=== PATIENT | female | born 1960 | race Caucasian/White ===

== ENCOUNTER 2017-10-31 19:59 | Emergency (ER) | payer OTHER ==
[~2017-10-31] VITALS: Ht 162.6 cm; Wt 77.2 kg
[2017-10-31 20:14] VITALS: Ht 162.6 cm; Wt 77.2 kg
[2017-10-31 22:05] VITALS: BP 118/72
== END 2017-10-31 22:05 | disposition home or self-care (01) ==
LOC: ED 19:59
DX: J11.1 Influenza due to unidentified influenza virus with other respiratory manifestations (principal); J45.909 Unspecified asthma, uncomplicated; F32.9 Major depressive disorder, single episode, unspecified
CPT/HCPCS: J1100

== ENCOUNTER 2018-12-11 02:55 | Emergency (ER) | payer OTHER ==
[2018-12-11 03:01] VITALS: BP 105/85; Ht 154.9 cm
== END 2018-12-11 04:23 | disposition left against medical advice (07) ==
LOC: ED 02:55
DX: Z53.21 Procedure and treatment not carried out due to patient leaving prior to being seen by health care provider (principal)

== ENCOUNTER 2019-03-06 09:09 | Inpatient (IN) | payer OTHER ==
[~2019-03-06] VITALS: Ht 154.9 cm; Wt 83.5 kg
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
--- NOTE | 2019-03-06 09:40 | NUR ---
DR KEE AT BEDSIDE FOR MSE
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
--- NOTE | 2019-03-06 10:25 | NUR ---
LILLIAN MANAGER CRISIS AT BEDSIDE TO SPEAK WITH PT.
--- NOTE | 2019-03-06 10:53 | NUR ---
OFFICER MARCIO PLACED PT ON A 5150 HOLD. PT AT THIS TIME CALM AND COOPERATIVE PTS DAUGHTER AT BEDSIDE
--- NOTE | 2019-03-06 11:15 | NUR ---
PT INST TO PROVIDE CLEAN CATCH URINE. LAB BLOOD DRAW AT BEDSIDE
--- NOTE | 2019-03-06 11:20 | NUR ---
PT C/O BILATERAL HAND NECK AND BACK PAIN DUE TO "ARTHRITIS" DR KEE MADE AWRE PT REQUESTING PAIN MEDICATION
--- NOTE | 2019-03-06 11:31 | NUR ---
PT MEDICATED PER MD ORDERS SEE EMAR.
[2019-03-06 11:39] LABS: BASOPHIL % 0.3 % (0-2); PLATELET COUNT 266 x10^3mcL (130-400); RED CELL DISTRIBUTION WIDTH 14.5 % (11.5-14.5)
[2019-03-06 11:46] LABS: CARBON DIOXIDE 30.6 mmol/L (21-32); CHLORIDE SERUM 107 mmol/L (98-107); CREATININE SERUM 0.6 mg/dL (0.6-1.0); GFR1 > 60 mL/min; GLUCOSE SERUM 100 mg/dL (74-106); POTASSIUM SERUM 3.9 mmol/L (3.5-5.1); SODIUM SERUM 144 mmol/L (136-145)
[2019-03-06 11:59] LABS: ALBUMIN 3.7 g/dL (3.4-5.0); ALKALINE PHOSPHATASE 109 U/L (46-116); ALT/SGPT 35 U/L (14-59); AST/SGOT 17 U/L (15-37); BILIRUBIN TOTAL 0.6 mg/dL (0.20-1.00); T4(THYROXINE) 6.3 ug/dL (4.7-13.3); TOTAL PROTEIN, SERUM 7.2 g/dL (6.4-8.2)
--- NOTE | 2019-03-06 12:30 | NUR ---
PT WITH URGE TO SMOKE. OK PER DR KEE. DAUGHTER WILL MONITOR PT IN SMOKING AREA OUTSIDE OF ED.
--- NOTE | 2019-03-06 12:43 | NUR ---
PT BACK TO ROOM WITH NO INCIDENT. DAUGHTER AT BEDSIDE
[2019-03-06 13:01] LABS: AMPHETAMINE QUAL UR NONE DETECTED (See below)
--- NOTE | 2019-03-06 13:58 | NUR ---
PT RESTING COMFORTABLY TALKING WITH DAUGHTER WHO IS AT BEDSIDE. VSS WILL CONTINUE TO MONITOR
--- NOTE | 2019-03-06 15:04 | NUR ---
PT MOVED TO BED 4 FOR CLOSER MONITORING. PT IN NO DISTRESS SILVIO ASHRAF RESUMING CARE OF THIS PT.
--- NOTE | 2019-03-06 15:54 | NUR ---
PT IN ROOM IN DIRECT VIEW OF NURSES STATION WHEN PT STARTED SCREAMING AT HIM. PT CRYING AND AGITATED. PRIOR TO HUSBAN PT WAS CALM AND COOPERATIVE. ASKED TO LEAVE THE ROOM, HE WAS COOPERATIVE. TURNED OFF LIGHTS TO PT ROOM, PT NO LONGER CRYING BUT TEARY EYED. OFFERED WATER. HR=84 SP02=97% ON RA RR=16
--- NOTE | 2019-03-06 17:06 | NUR ---
SON NOW AT BEDSIDE. PT IS CALM AND COOPERATIVE. NO ACUTE DISTRESS NOTED AT THIS MOMENT. RESPS E/U, SKIN IS PINK, WARM AND DRY.
--- NOTE | 2019-03-06 18:27 | NUR ---
SPOKE TO PSYCH MD AND GAVE HIM REPORT. HE WILL BE CALLING IN 7 MINUTES TO INITIATE ASSESSMENT.
--- NOTE | 2019-03-06 18:58 | NUR ---
DR. DOMÍNGUEZ RECOMMEND IN-PATIENT PSYCHITRY PLACEMENT. DR BRYANT MADE AWARE.
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
--- NOTE | 2019-03-06 20:49 | NUR ---
MEDICATION GIVEN PER ORDER. NO S/S OF DISTRESS PT AMBULATING AROUND ROOM AND CLEANED AREA WITH STEADY GAIT. WILL CONTINUE TO MONITOR
--- NOTE | 2019-03-06 23:49 | NUR ---
PT LYING ON LEFT SD NO S/S OF DISTRESS. VITALS STABLE.
--- NOTE | 2019-03-07 02:59 | NUR ---
PT LYING COMFORTABLY ON LEFT SD NO S/S OF DISTRESS.
--- NOTE | 2019-03-07 06:24 | NUR ---
PT AMBULATED TO RESTROOM. NO S/S OF DISTRESS. SPEAKS IN CLEAR AND CONCISE SENTENCES.
--- NOTE | 2019-03-07 07:15 | NUR ---
RECEIVED REPORT FROM ANTONIO PATEL
--- NOTE | 2019-03-07 08:32 | NUR ---
Pt packet faxed to the following facilities: [facility]: [facility], pending D/Cs will review packet [facility]: [facility], pending D/Cs, will review packet [facility]: packet on file for review for any potential openings. Will continue to contact contracted facilities, will contact with any update
--- NOTE | 2019-03-07 09:37 | NUR ---
PT FINISHED EATING BREAKFAST. SLEEPING AT THIS TIME WITH VSS AND NO DISTRESS. BREATHING IS EVEN AND UNLABORED. WILL CONTINUE TO MONITOR
--- NOTE | 2019-03-07 11:12 | NUR ---
PT OOB TO GO OUTSIDE AND SMOKE WITH HER DAUGHTER. PRIMARY RN MADE AWARE.
--- NOTE | 2019-03-07 12:23 | NUR ---
PT SITTING HIGH FOWLERS EATING LUNCH. DENIES PAIN. COMPLETELY COOPERATIVE AND NO DISTRESS NOTED. WILL CONTINUE TO MONITOR
--- NOTE | 2019-03-07 13:20 | NUR ---
PT OUTSIDE TO SMOKE AT THIS TIME. NO DISTRESS AND VSS
--- NOTE | 2019-03-07 15:14 | NUR ---
PT CONNECTED TO CABLE PLACER FOR VSS AND WITHIN A FEW MIN PT RMOVED ALL CARDIAC EQUIPMENT AGAIN. TALKING ON CELL PHONE AND WALKING AROUND.
--- NOTE | 2019-03-07 15:32 | NUR ---
REPORT GIVEN TO LISA SHELL RN
--- NOTE | 2019-03-07 15:34 | NUR ---
[facility]. PT CLAIMS SHE TAKES MEDS FOR ARTHRITIS BUT CANNOT RECALL NAME
--- NOTE | 2019-03-07 15:50 | NUR ---
AWAITING ADMISSION ORDERS
--- NOTE | 2019-03-07 16:35 | NUR ---
[facility] BY TRANSPORTER. PT A/A/O X 4, CALM, COOPERATIVE AT THIS TIME, WEARS GLASSES (W/ PT); NO S/I OR HALLUCINATION OF ANY TYPE. AMBULATORY, NO GAIT OR BALANCE IMPAIRMENT NOTED WALKING FROM [facility] TO BED. DENIES CHEST PAIN OR DISCOMFORT AT THIS TIME. NO RESPIRATORY DISTRESS NOTED. NOTED BILATERAL UPPER EXTREMITY SELF-INFLICTED LINEAR SCRATCHES OF VARYING LENGTHS, ALL SUPERFICIAL; KEY CARRIER. C/O SHARP, INTERMITTENT RIGHT-SIDED PAIN TO HEAD, NECK, AND ARMS, 4/10, RELIEVED ONLY BY PAIN MEDICATION. PT DOES NOT HAVE ANY IV SITE AT THIS TIME. SITTER IS BY BEDSIDE. ORIENTED PT TO ROOM, BED CONTROLS, CALL LIGHT SYSTEM. SIDE RAILS UP X 2, BED IN LOW POSITION. WILL ENDORSE TO PASCALE GONZALEZ.
[2019-03-07 17:14] VITALS: BP 119/61
--- NOTE | 2019-03-07 18:12 | NUR ---
REMAINS IN STABLE CONDITION AT THIS TIME. PT. DENIES ANY SUICIDAL IDEATION AT THE PRESENT TIME. SITTER AT BEDSIDE. WILL CONTINUE TO MONITOR.
--- NOTE | 2019-03-07 19:50 | NUR ---
RECEIVED REPORT FROM DAY SHIFT RN. PT RESTING IN BED. AA&O X4. NO SOB ON ROOM AIR. NO C/O PAIN. NO DISTRESS NOTED. DENIES HAVING THOUGHTS OF HARMING SELF OR OTHERS. SAFETY MEASURES IN PLACE. SITTER AT BEDSIDE. BED IN LOWEST POSITION. SIDE RAILS UP X2. INSTRUCTED PT TO USE THE CALL LIGHT FOR ASSISTANCE. CALL LIGHT WITHIN REACH. DAUGHTER AT BEDSIDE.
[2019-03-07 20:54] VITALS: BP 118/72
[2019-03-07 23:08] LABS: microscopic required? NO
[2019-03-07 23:26] LABS: UA SPECIFIC GRAVITY <=1.005 (1.005-1.035); urine erythrocyte NEGATIVE (NEGATIVE)
--- NOTE | 2019-03-08 00:35 | NUR ---
TYLENOL GIVEN FOR HEADACHE.
--- NOTE | 2019-03-08 00:48 | NUR ---
AMBIEN GIVEN FOR INSOMNIA.
--- NOTE | 2019-03-08 01:35 | NUR ---
PT RESTING WITH EYES CLOSED. BREATHING EVEN AND UNLABORED. NO FACIAL GRIMACING. CALL LIGHT WITHIN REACH. SITTER AT BEDSIDE.
[2019-03-08 05:43] VITALS: BP 128/80
--- NOTE | 2019-03-08 06:01 | NUR ---
Karyn ASHRAFcharge attendant nurse made aware , there are no vacancy at any of the designated facilities.
--- NOTE | 2019-03-08 06:42 | NUR ---
PT SLEPT AT LONG INTERVALS DURING SHIFT. NO SOB. NO C/O PAIN. NO DISTRESS NOTED. DENIES SUICIDAL IDEATION. CALM AND COOPERATIVE WITH CARE. SAFETY MEASURES MAINTAINED. CALL LIGHT WITHIN REACH. SITTER AT BEDSIDE. WILL ENDORSE CONTINUITY OF CARE TO DAY SHIFT RN.
--- NOTE | 2019-03-08 07:10 | NUR ---
RECEIVED PT FROM FUR CLEANER. PT AWAKE, ALERT A/OX4. PT FOUND ON 2LNC WITH NO RESP DISTRESS NOTED. LUNGS CTA. IV ACCESS RIGHT WRIST 22G C/D/I SALINE LOCKED. PERIPHERAL PULSES PALPABLE, NO EDEMA NOTED. PT COMPLAINS OF HEADACHE 7/10 AND ARTHRITIC PAIN TO HANDS AND FEET. WILL MEDICATE PRN. ACTIVE BS NOTED, NO APPARENT ISSUES WITH ELIMINATION. PT DENIES ANY SUICIDAL IDEATION AT THIS TIME. PT CALM AND COOPERATIVE. SITTER AT BEDSIDE. SAFETY MEASURES IN PLACE, BED LOW AND LOCKED. CALL LIGHT WITHIN REACH.
[2019-03-08 08:12] VITALS: BP 127/77
--- NOTE | 2019-03-08 11:33 | NUR ---
Called [facility], s/w intake. No beds.
--- NOTE | 2019-03-08 11:38 | NUR ---
Called [facility], s/w [facility] SUP. No beds.
--- NOTE | 2019-03-08 11:40 | NUR ---
Called [facility], no answer. Was forwarded to the voicemail of Bernice. Will follow up.
--- NOTE | 2019-03-08 12:52 | NUR ---
MORNING MEDS ADMINISTERED. PT AWAKE AND ALERT WITH NO SUICIDAL IDEATION AT THIS TIME. SAFETY MAINTAINED.
--- NOTE | 2019-03-08 12:53 | NUR ---
ALL NEEDS MET AT THIS TIME. NO ACUTE DISTRESS OR DISCOMFORT NOTED. PT CALM AND COOPERATIVE.
[2019-03-08] MEDS ORDERED: KROGER NIC21 MG/24 H TOP (13:41)
[2019-03-08] MEDS ORDERED: LEVOTHYROXIN0.025 M2 PO (13:41)
[2019-03-08 13:58] VITALS: BP 127/77
--- NOTE | 2019-03-08 14:23 | NUR ---
PT DISCHARGE INSTRUCTIONS/EDUCATION PROVIDED TO PATIENT. PT TO FOLLOW UP WITH PCP AND MAKE APPT. PT VERBALIZES UNDERSTANDING. IV ACCESS REMOVED WITH CATHETER INTACT. NO SWELLING, BLEEDING OR REDNESS NOTED. PT CALM AND COOPERATIVE AT THIS TIME. PT FAMILY TO COME PICK HER UP, PT INSTRUCTED TO CALL FOR ASSISTANCE WHEN FAMILY ARRIVES.
[2019-03-11 08:57] VITALS: Ht 154.9 cm; Wt 83.5 kg
== END 2019-03-08 14:53 | disposition home or self-care (01) | DRG 384 ==
LOC: ED 09:09 → MU 03-07 11:43
PROVIDERS: Emergency Medicine; ADMIT Internal Medicine
DX: S51.812A Laceration without foreign body of left forearm, initial encounter (principal); R45.851 Suicidal ideations; E03.9 Hypothyroidism, unspecified; F32.9 Major depressive disorder, single episode, unspecified; F41.9 Anxiety disorder, unspecified; G47.00 Insomnia, unspecified; M19.90 Unspecified osteoarthritis, unspecified site; F17.210 Nicotine dependence, cigarettes, uncomplicated; Z68.34 Body mass index [BMI] 34.0-34.9, adult; X78.0XXA Intentional self-harm by sharp glass, initial encounter; Y92.009 Unspecified place in unspecified non-institutional (private) residence as the place of occurrence of the external cause
CPT/HCPCS: 99406; G0378; G0480

== ENCOUNTER 2019-07-15 18:57 | Emergency (ER) | payer OTHER ==
[~2019-07-15] VITALS: Ht 154.9 cm; Wt 84.8 kg
[~2019-07-15 18:57] MED LIST: KROGER NIC21 MG/24 H TOP; LEVOTHYROXIN0.025 M2 PO
[2019-07-15 21:04] VITALS: BP 102/80
== END 2019-07-15 21:04 | disposition home or self-care (01) ==
LOC: ED 18:57
DX: S13.4XXA Sprain of ligaments of cervical spine, initial encounter (principal); M54.5 Low back pain; M25.511 Pain in right shoulder; M25.512 Pain in left shoulder; J45.909 Unspecified asthma, uncomplicated; F32.9 Major depressive disorder, single episode, unspecified; M19.90 Unspecified osteoarthritis, unspecified site; V43.62XA Car passenger injured in collision with other type car in traffic accident, initial encounter; Y93.89 Activity, other specified; Y92.488 Other paved roadways as the place of occurrence of the external cause; Y99.8 Other external cause status

== ENCOUNTER 2020-06-08 14:04 | Emergency (ER) | payer OTHER ==
[~2020-06-08] VITALS: Ht 154.9 cm; Wt 83.0 kg
[2020-06-08 14:07] VITALS: Ht 154.9 cm; Wt 83.0 kg
[2020-06-08 16:09] VITALS: BP 114/50
== END 2020-06-08 16:09 | disposition home or self-care (01) ==
LOC: ED 14:04
DX: S86.811A Strain of other muscle(s) and tendon(s) at lower leg level, right leg, initial encounter (principal); S30.0XXA Contusion of lower back and pelvis, initial encounter; M16.0 Bilateral primary osteoarthritis of hip; E03.9 Hypothyroidism, unspecified; F17.210 Nicotine dependence, cigarettes, uncomplicated; E66.9 Obesity, unspecified; M06.9 Rheumatoid arthritis, unspecified; M19.90 Unspecified osteoarthritis, unspecified site; Z68.34 Body mass index [BMI] 34.0-34.9, adult; W01.0XXA Fall on same level from slipping, tripping and stumbling without subsequent striking against object, initial encounter; Y93.89 Activity, other specified; Y99.8 Other external cause status; Y92.524 Gas station as the place of occurrence of the external cause
CPT/HCPCS: 99406; J1885